=== PATIENT | male | born 1995 | race Caucasian/White ===

== ENCOUNTER 2017-01-21 22:34 | Emergency (ER) | payer MEDICARE | END 2017-01-21 23:10 | disposition home or self-care (01) | LOC: ER 22:34 | DX: S50.02XA Contusion of left elbow, initial encounter (principal); S30.810A Abrasion of lower back and pelvis, initial encounter; S20.412A Abrasion of left back wall of thorax, initial encounter; F17.210 Nicotine dependence, cigarettes, uncomplicated; V87.8XXA Person injured in other specified noncollision transport accidents involving motor vehicle (traffic), initial encounter ==

== ENCOUNTER 2017-01-23 18:37 | Emergency (ER) | payer MEDICARE | END 2017-01-23 19:32 | disposition home or self-care (01) | LOC: ER 18:37 | DX: S20.412A Abrasion of left back wall of thorax, initial encounter (principal); S40.212A Abrasion of left shoulder, initial encounter; M25.422 Effusion, left elbow; F17.210 Nicotine dependence, cigarettes, uncomplicated; V86.99XA Unspecified occupant of other special all-terrain or other off-road motor vehicle injured in nontraffic accident, initial encounter ==